=== PATIENT | female | born 1950 | race Caucasian/White ===

== ENCOUNTER 2019-07-21 20:26 | Inpatient (IN) ==
[2019-07-22] MEDS ORDERED: Naloxone 0.4 MG/ML INJ IVP PRN ×2 (01:35→09:30)
[2019-07-22] MEDS ORDERED: *HR* Promethazine 25 MG/ML VIAL IVP PRN ×2 (01:35→07:20)
[2019-07-22] MEDS ORDERED: Potassium Chloride 40 MEQ, Lidocaine 1% 2 ML in 0.9 % Sodium Chloride 500 ML IVPB ONE (01:39)
[2019-07-22] MEDS ORDERED: 0.9 % Sodium Chloride 1,000 ML IVC SCH (01:45)
[2019-07-22] MEDS: *HR* HYDROmorphone (PF) 1 MG/ML SYRINGE IVP PRN ×2 (02:24→06:28)
[2019-07-22 04:10] LABS: Hematocrit 35.8 % (35.3-44.9); Hemoglobin 11.5 g/dL (11.5-15.4); Mean Corpuscular HGB Conc 32.1 g/dL (31.6-35.5); Mean Corpuscular Volume 90.4 fL (83.0-100.0); Platelet Count 456 K/mcL (140-400); Red Blood Count 3.96 M/mcL (3.82-4.97); Red Cell Distribution Width 13.1 % (11.5-14.5); White Blood Count 16.3 K/mcL (4.3-11.1)
[2019-07-22 04:12] LABS: INR 1.8; Prothrombin Time 20.9 Seconds (9.4-12.1)
[2019-07-22 04:29] LABS: BUN/Creatinine Ratio 10 (6-26); Blood Urea Nitrogen 8 mg/dL (8-23); Calcium 8.6 mg/dL (8.6-10.3); Carbon Dioxide 26 mEq/L (23-29); Chloride 102 mEq/L (98-107); Glucose 118 mg/dL (70-105); Magnesium 1.8 mg/dL (1.6-2.6); Osmolality,Calculated 279 (280-300); Phosphorous 3.4 mg/dL (2.7-4.5); Potassium 3.9 mEq/L (3.5-5.1); Sodium 135 mEq/L (136-145); eGFR For African Americans > 60 (> 60); eGFR For Non-African Americans > 60 (> 60)
[2019-07-22 06:36] LABS: INR 1.5; Prothrombin Time 17.5 Seconds (9.4-12.1)
[2019-07-22] MEDS ORDERED: Ondansetron 4 MG/2 ML VIAL IVP ONE (07:20)
[2019-07-22] MEDS ORDERED: *HR* OxyCODONE Immed Rel 5 MG TABLET PO PRN (07:20)
[2019-07-22] MEDS ORDERED: *HR* FentaNYL (PF) 100 MCG/2 ML VIAL ONE (07:20)
[2019-07-22] MEDS ORDERED: *HR* Midazolam HCl 2 MG/2 ML VIAL ONE (07:20)
[2019-07-22] MEDS ORDERED: *HR* Propofol 200 MG/20 ML VIAL IVP ONE (07:21)
[2019-07-22] MEDS ORDERED: Lidocaine HCL 4 ML Topical Solution (Laryng-O-Jet Kit Sterile Pak) TP ONE (07:23)
[2019-07-22] MEDS ORDERED: Ondansetron 4 MG/2 ML VIAL ONE (07:23)
[2019-07-22] MEDS ORDERED: Dexamethasone 4 MG/ML VIAL ONE (07:23)
[2019-07-22] MEDS ORDERED: *HR* Succinylcholine 200 MG/10 ML VIAL IVP ONE (07:23)
[2019-07-22] MEDS ORDERED: Lidocaine -MPF 2% 2 ML VIAL ONE (07:23)
[2019-07-22] MEDS ORDERED: CeFAZolin Syr 2,000MG/20 ML 2,000 MG/20 ML SYRINGE IVPB ONE (08:00)
[2019-07-22] MEDS ORDERED: *HR* PHENYLEPHRINE 1,000 MCG/10 ML SYRINGE IVP ONE (08:10)
[2019-07-22] MEDS ORDERED: *HR* HYDROMORPHONE 2 MG/ML VIAL ONE (08:19)
[2019-07-22] MEDS: *HR* HYDROmorphone PF 0.5 MG/0.5 ML SYRINGE IVP PRN ×2 (08:58→09:06)
[2019-07-22] MEDS ORDERED: Nicotine 14 MG PATCH.TD24 TD SCH (09:00)
[2019-07-22] MEDS ORDERED: *HR* OxyCODONE/APAP 5/325 TABLET PO PRN (09:30)
[2019-07-22] MEDS ORDERED: Sennosides 8.6 MG TABLET PO PRN (09:30)
[2019-07-22] MEDS ORDERED: Ondansetron 4 MG/2 ML VIAL IVP PRN (09:30)
[2019-07-22] MEDS: 0.9 % Sodium Chloride 1,000 ML IVC SCH (10:43)
[2019-07-22] MEDS: Cholecalciferol (D-3) 1,000 UNIT (25MCG) TABLET PO SCH (10:45)
[2019-07-22] MEDS: *HR* OxyCODONE Immed Rel 5 MG TABLET PO PRN ×3 (10:53→23:35)
[2019-07-22] MEDS ORDERED: *HR* Enoxaparin 40 MG/0.4 ML SYRINGE SQ SCH (12:00)
[2019-07-22] MEDS: Nicotine 14 MG PATCH.TD24 TD SCH (12:18)
[2019-07-22] MEDS ORDERED: Fluticasone Propionate Nasal 50 MCG/SPRAY BOTTLE NS PRN (15:12)
[2019-07-22] MEDS ORDERED: Bisacodyl 10 MG RECTAL SUPPOSITORY RC PRN (15:12)
[2019-07-22] MEDS: CeFAZolin 2 GM/120 ML BAG IVPB SCH ×2 (17:40→23:36)
[2019-07-22] MEDS ORDERED: *HR* Warfarin 2 MG TABLET PO ONE (18:00)
[2019-07-22] MEDS ORDERED: Warfarin perPT PO PRN (18:00)
[2019-07-22] MEDS ORDERED: *HR* Warfarin 2 MG TABLET PO SCH (18:00)
[2019-07-22] MEDS: BuPROPion SR (12 HR) 150 MG TABLET PO SCH (19:56)
[2019-07-22] MEDS: traZODone 50 MG TABLET PO SCH (19:56)
[2019-07-22] MEDS: cilostazoL 100 MG TABLET PO SCH (19:57)
[2019-07-22] MEDS: tiZANidine 4 MG TABLET PO SCH (19:57)
[2019-07-22] MEDS: hydrOXYzine pamoate 25 MG CAPSULE PO SCH (19:57)
[2019-07-23] MEDS: 0.9 % Sodium Chloride 1,000 ML IVC SCH (02:31)
[2019-07-23] MEDS: *HR* OxyCODONE Immed Rel 5 MG TABLET PO PRN ×4 (05:19→21:38)
[2019-07-23 05:38] LABS: Basophils % 0.2 %; Eosinophils % 0.2 %; Hematocrit 34.1 % (35.3-44.9); Hemoglobin 10.8 g/dL (11.5-15.4); Immature Granulocytes % 0.4 % (0-4); Lymphocytes # 2.5 K/mcL (0.6-4.6); Lymphocytes % 20.4 %; Mean Corpuscular HGB Conc 31.7 g/dL (31.6-35.5); Mean Corpuscular Hemoglobin 29.3 pg (28.0-33.3); Mean Corpuscular Volume 92.4 fL (83.0-100.0); Mean Platelet Volume 9.2 fL (9.4-12.4); Neutrophils # 8.5 K/mcL (1.6-8.9); Platelet Count 414 K/mcL (140-400); Red Blood Count 3.69 M/mcL (3.82-4.97); Red Cell Distribution Width 13.4 % (11.5-14.5); Segmented Neutrophils % 70.8 %
[2019-07-23 05:47] LABS: Prothrombin Time 11.7 Seconds (9.4-12.1)
[2019-07-23 05:58] LABS: BUN/Creatinine Ratio 12 (6-26); Blood Urea Nitrogen 9 mg/dL (8-23); Calcium 8.2 mg/dL (8.6-10.3); Carbon Dioxide 27 mEq/L (23-29); Chloride 104 mEq/L (98-107); Glucose 100 mg/dL (70-105); Osmolality,Calculated 281 (280-300); Potassium 4.1 mEq/L (3.5-5.1); Sodium 136 mEq/L (136-145); eGFR For African Americans > 60 (> 60); eGFR For Non-African Americans > 60 (> 60)
[2019-07-23] MEDS: BuPROPion SR (12 HR) 150 MG TABLET PO SCH ×2 (07:32→20:31)
[2019-07-23] MEDS: tiZANidine 4 MG TABLET PO SCH ×2 (07:32→20:31)
[2019-07-23] MEDS: hydrOXYzine pamoate 25 MG CAPSULE PO SCH ×2 (07:33→20:31)
[2019-07-23] MEDS: Aspirin Enteric Coated 81 MG Tablet PO SCH ×2 (07:34→07:40)
[2019-07-23] MEDS: Nicotine 14 MG PATCH.TD24 TD SCH (07:34)
[2019-07-23] MEDS: Cholecalciferol (D-3) 1,000 UNIT (25MCG) TABLET PO SCH (07:36)
[2019-07-23] MEDS: Famotidine 20 MG TABLET PO SCH (07:37)
[2019-07-23] MEDS: cilostazoL 100 MG TABLET PO SCH ×2 (07:37→20:32)
[2019-07-23] MEDS: polyethylene glycoL 3350 17 GM POWD.PACK PO SCH (07:38)
[2019-07-23] MEDS ORDERED: Nicotine 14 MG PATCH.TD24 TD SCH (09:00)
[2019-07-23] MEDS: *HR* LORazepam 2 MG/ML VIAL IVP PRN ×2 (10:21→18:25)
[2019-07-23] MEDS ORDERED: *HR* Heparin 5,000 UNIT/ML VIAL IVP ONE (10:52)
[2019-07-23] MEDS ORDERED: *HR* Heparin 5,000 UNIT/ML VIAL IVP PRN (10:52)
[2019-07-23] MEDS: Heparin 25,000 UNIT/250 ML D5W 25,000 UNIT/250 ML IV.SOLN IVC SCH (11:38)
[2019-07-23] MEDS: *HR* Heparin 5,000 UNIT/ML VIAL IVP PRN (17:56)
[2019-07-23] MEDS: traZODone 50 MG TABLET PO SCH (20:32)
[2019-07-24 00:54] LABS: Basophils % 0.3 %; Eosinophils # 0.2 K/mcL (0.0-0.6); Eosinophils % 1.7 %; Hematocrit 35.3 % (35.3-44.9); Hemoglobin 10.9 g/dL (11.5-15.4); Immature Granulocytes % 0.4 % (0-4); Lymphocytes # 3.4 K/mcL (0.6-4.6); Lymphocytes % 24.8 %; Mean Corpuscular HGB Conc 30.9 g/dL (31.6-35.5); Mean Corpuscular Hemoglobin 28.5 pg (28.0-33.3); Mean Corpuscular Volume 92.2 fL (83.0-100.0); Mean Platelet Volume 9.6 fL (9.4-12.4); Monocytes # 0.8 K/mcL (0.0-1.3); Monocytes % 6.2 %; Neutrophils # 9.1 K/mcL (1.6-8.9); Platelet Count 401 K/mcL (140-400); Red Blood Count 3.83 M/mcL (3.82-4.97); Red Cell Distribution Width 13.6 % (11.5-14.5); Segmented Neutrophils % 66.6 %; White Blood Count 13.6 K/mcL (4.3-11.1)
[2019-07-24 01:12] LABS: BUN/Creatinine Ratio 14 (6-26); Blood Urea Nitrogen 12 mg/dL (8-23); Calcium 8.2 mg/dL (8.6-10.3); Carbon Dioxide 25 mEq/L (23-29); Chloride 101 mEq/L (98-107); Glucose 94 mg/dL (70-105); Osmolality,Calculated 274 (280-300); Potassium 3.7 mEq/L (3.5-5.1); Sodium 132 mEq/L (136-145); eGFR For African Americans > 60 (> 60); eGFR For Non-African Americans > 60 (> 60)
[2019-07-24] MEDS ORDERED: *HR* LORazepam 2 MG/ML VIAL IVP ONE (02:07)
[2019-07-24 02:33] LABS: Heparin anti-factor XA UFH 0.24 IU/mL (0.30-0.70)
[2019-07-24 02:34] LABS: INR 1.1
[2019-07-24] MEDS: *HR* Heparin 5,000 UNIT/ML VIAL IVP PRN ×2 (02:47→15:16)
[2019-07-24] MEDS: *HR* OxyCODONE Immed Rel 5 MG TABLET PO PRN ×3 (07:50→17:37)
[2019-07-24] MEDS: cilostazoL 100 MG TABLET PO SCH ×2 (07:51→20:58)
[2019-07-24] MEDS: Famotidine 20 MG TABLET PO SCH (07:51)
[2019-07-24] MEDS: hydrOXYzine pamoate 25 MG CAPSULE PO SCH ×2 (07:52→20:59)
[2019-07-24] MEDS: BuPROPion SR (12 HR) 150 MG TABLET PO SCH ×2 (07:53→20:59)
[2019-07-24] MEDS: tiZANidine 4 MG TABLET PO SCH ×2 (07:53→20:58)
[2019-07-24] MEDS: Cholecalciferol (D-3) 1,000 UNIT (25MCG) TABLET PO SCH (07:57)
[2019-07-24] MEDS: Nicotine 14 MG PATCH.TD24 TD SCH (07:57)
[2019-07-24] MEDS: polyethylene glycoL 3350 17 GM POWD.PACK PO SCH (07:59)
[2019-07-24] MEDS: *HR* LORazepam 2 MG/ML VIAL IVP PRN (08:15)
[2019-07-24] MEDS: Heparin 25,000 UNIT/250 ML D5W 25,000 UNIT/250 ML IV.SOLN IVC SCH (10:42)
[2019-07-24] MEDS ORDERED: *HR* Warfarin 1 MG TABLET PO ONE (18:00)
[2019-07-24] MEDS ORDERED: Warfarin perPT PO PRN (18:00)
[2019-07-24] MEDS: traZODone 50 MG TABLET PO SCH (21:00)
[2019-07-25 04:05] LABS: Basophils % 0.3 %; Eosinophils # 0.4 K/mcL (0.0-0.6); Eosinophils % 3.8 %; Hematocrit 33.2 % (35.3-44.9); Hemoglobin 10.3 g/dL (11.5-15.4); Immature Granulocytes % 0.4 % (0-4); Lymphocytes # 3.5 K/mcL (0.6-4.6); Lymphocytes % 30.7 %; Mean Corpuscular Hemoglobin 28.5 pg (28.0-33.3); Mean Corpuscular Volume 91.7 fL (83.0-100.0); Mean Platelet Volume 9.3 fL (9.4-12.4); Monocytes # 0.7 K/mcL (0.0-1.3); Monocytes % 6.5 %; Neutrophils # 6.6 K/mcL (1.6-8.9); Platelet Count 445 K/mcL (140-400); Red Blood Count 3.62 M/mcL (3.82-4.97); Red Cell Distribution Width 13.4 % (11.5-14.5); Segmented Neutrophils % 58.3 %; White Blood Count 11.3 K/mcL (4.3-11.1)
[2019-07-25 04:25] LABS: BUN/Creatinine Ratio 11 (6-26); Blood Urea Nitrogen 9 mg/dL (8-23); Calcium 8.4 mg/dL (8.6-10.3); Carbon Dioxide 27 mEq/L (23-29); Chloride 101 mEq/L (98-107); Glucose 92 mg/dL (70-105); Osmolality,Calculated 276 (280-300); Potassium 3.7 mEq/L (3.5-5.1); Sodium 134 mEq/L (136-145); eGFR For African Americans > 60 (> 60); eGFR For Non-African Americans > 60 (> 60)
[2019-07-25] MEDS: *HR* OxyCODONE Immed Rel 5 MG TABLET PO PRN ×3 (05:49→20:55)
[2019-07-25] MEDS: Heparin 25,000 UNIT/250 ML D5W 25,000 UNIT/250 ML IV.SOLN IVC SCH (07:06)
[2019-07-25] MEDS: polyethylene glycoL 3350 17 GM POWD.PACK PO SCH (08:00)
[2019-07-25] MEDS: Famotidine 20 MG TABLET PO SCH (08:00)
[2019-07-25] MEDS: Nicotine 14 MG PATCH.TD24 TD SCH (08:00)
[2019-07-25] MEDS: hydrOXYzine pamoate 25 MG CAPSULE PO SCH ×2 (08:01→20:56)
[2019-07-25] MEDS: BuPROPion SR (12 HR) 150 MG TABLET PO SCH ×2 (08:01→20:55)
[2019-07-25] MEDS: tiZANidine 4 MG TABLET PO SCH (08:01)
[2019-07-25] MEDS: Cholecalciferol (D-3) 1,000 UNIT (25MCG) TABLET PO SCH (08:01)
[2019-07-25] MEDS: cilostazoL 100 MG TABLET PO SCH ×2 (08:01→20:56)
[2019-07-25] MEDS: *HR* LORazepam 2 MG/ML VIAL IVP PRN ×2 (08:23→16:25)
[2019-07-25 12:52] LABS: INR 1.1
[2019-07-25] MEDS ORDERED: tiZANidine 4 MG TABLET PO PRN (13:53)
[2019-07-25] MEDS ORDERED: *HR* Warfarin 4 MG TABLET PO ONE (18:00)
[2019-07-25] MEDS: traZODone 50 MG TABLET PO SCH (20:56)
[2019-07-26] MEDS: *HR* LORazepam 2 MG/ML VIAL IVP PRN ×2 (00:12→11:03)
[2019-07-26 04:00] LABS: INR 1.2; Prothrombin Time 13.8 Seconds (9.4-12.1)
[2019-07-26] MEDS: *HR* OxyCODONE Immed Rel 5 MG TABLET PO PRN ×2 (04:32→09:03)
[2019-07-26] MEDS: *HR* Heparin 5,000 UNIT/ML VIAL IVP PRN (04:40)
[2019-07-26] MEDS: Heparin 25,000 UNIT/250 ML D5W 25,000 UNIT/250 ML IV.SOLN IVC SCH (05:31)
[2019-07-26] MEDS: polyethylene glycoL 3350 17 GM POWD.PACK PO SCH (08:55)
[2019-07-26] MEDS: Cholecalciferol (D-3) 1,000 UNIT (25MCG) TABLET PO SCH (08:55)
[2019-07-26] MEDS: cilostazoL 100 MG TABLET PO SCH (08:55)
[2019-07-26] MEDS: Famotidine 20 MG TABLET PO SCH (08:55)
[2019-07-26] MEDS: hydrOXYzine pamoate 25 MG CAPSULE PO SCH (08:55)
[2019-07-26] MEDS: BuPROPion SR (12 HR) 150 MG TABLET PO SCH (08:55)
[2019-07-26] MEDS: Nicotine 14 MG PATCH.TD24 TD SCH (08:56)
[2019-07-26 11:27] VITALS: BP 122/72
[2019-07-26] MEDS ORDERED: *HR* Enoxaparin 80 MG/0.8 ML SYRINGE SQ ONE ×2 (11:34→12:00)
[2019-07-26] MEDS ORDERED: *HR* Warfarin 2 MG TABLET PO ONE (18:00)
== END 2019-07-26 13:50 | DRG 481 ==
LOC: 3NENU → 2NENU → EDSTATUS 23:42 → SUATTDRO 23:45
PROVIDERS: ADMIT Student in an Organized Health Care Education/Training Program; ATTEND Internal Medicine